=== PATIENT | female | born 1995 | race African-American/Black ===

== ENCOUNTER 2016-09-03 03:02 | Emergency (ER) | payer OTHER ==
[~2016-09-03] VITALS: Ht 167.6 cm; Wt 56.7 kg
[2016-09-03] MEDS ORDERED: BACT800T5 PO (04:23)
[2016-09-03] MEDS ORDERED: BACTRIM 160MG/800MG DS TAB PO ONE (04:30)
[2016-09-03] MEDS ORDERED: PHENAZOPYRIDINE 100 MG TAB PO ONE (04:30)
[2016-09-03 04:56] VITALS: BP 128/68
== END 2016-09-03 04:59 | disposition home or self-care (01) ==
LOC: EDBD 04:09 → M ED 04:09
DX: N39.0 Urinary tract infection, site not specified (principal)

== ENCOUNTER 2017-02-12 12:59 | Emergency (ER) | payer OTHER ==
[~2017-02-12 12:59] MED LIST: BACT800T5 PO
[2017-02-12] MEDS ORDERED: MORPHINE 2 MG/ML 1ML SYRINGE IV ONE (14:15)
[2017-02-12] MEDS ORDERED: ONDANSETRON 4MG/2ML VIAL (J2405) IV ONE (14:15)
[2017-02-12 14:17] LABS: BASO # 0.1 10^3/uL (0.0-0.2); BASO % 0.8 % (0.0-1.0); EOS # 0.2 10^3/uL (0.0-0.50); EOS % 2.8 % (0.0-3.0); IMMATURE GRANULOCYTE % 0.3 % (0-0); LYMPH # 1.9 10^3/uL (1.5-6.5); LYMPH % 28.7 % (24.0-44.0); MEAN CORPUSCULAR HEMOGLOBIN 28.8 pg (27.0-33.0); MEAN CORPUSCULAR HGB CONC 33.5 g/dl (32.0-36.5); MEAN CORPUSCULAR VOLUME 85.8 fl (80.0-96.0); MONO # 0.4 10^3/uL (0.0-0.8); MONO % 6.4 % (0.0-5.0); NEUTROPHILS # 3.9 10^3/uL (1.8-7.7); PLATELET COUNT, AUTOMATED 212 10^3/uL (150-450); WHITE BLOOD COUNT 6.5 10^3/uL (4.0-10.0)
[2017-02-12 14:31] LABS: CONTROL LINE HCG INT CTR LINE PRESENT
[2017-02-12 14:34] LABS: ANION GAP 6 MEQ/L (8-16); BLOOD UREA NITROGEN 7 MG/DL (7-18); CARBON DIOXIDE LEVEL 27 MEQ/L (21-32); CHLORIDE LEVEL 108 MEQ/L (98-107); CREATININE FOR GFR 0.84 MG/DL (0.55-1.02); GLOMERULAR FILTRATION RATE > 60.0 (>60); GLUCOSE, FASTING 88 MG/DL (70-105); POTASSIUM SERUM 3.6 MEQ/L (3.5-5.1); SODIUM LEVEL 141 MEQ/L (136-145)
[2017-02-12] MEDS ORDERED: ISOVUE-370 76% 100ML VIAL (Q9967) As Ordered ONE (15:23)
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
[2017-02-12] MEDS ORDERED: KETOROLAC 30 MG/ML VIAL (J1885) IV ONE (16:30)
[2017-02-12 16:55] VITALS: BP 109/59
== END 2017-02-12 17:06 | disposition home or self-care (01) ==
LOC: EDBD 12:59 → M ED 12:59
DX: Z04.1 Encounter for examination and observation following transport accident (principal); M54.9 Dorsalgia, unspecified; V49.49XA Driver injured in collision with other motor vehicles in traffic accident, initial encounter; Y92.410 Unspecified street and highway as the place of occurrence of the external cause; Y93.89 Activity, other specified; Y99.8 Other external cause status
CPT/HCPCS: 71260; 72125; 74177; 80048; 84703; 85025; 96374; 96375; 99284; J1885; J2405; Q9967

== ENCOUNTER 2019-10-21 22:15 | Inpatient (IN) | payer OTHER ==
[2019-10-21] MEDS ORDERED: CHARCOAL ACTIVATED LIQUID 25 GM/120 ML BTL As Ordered ONE (22:37)
[2019-10-21] MEDS ORDERED: CHARCOAL ACTIVATED LIQUID 25 GM/120 ML BTL ONE (22:37)
[2019-10-23] MEDS ORDERED: NICOTINE 14 MG/24 HR TRANSDERMAL As Ordered ONE (18:45)
[2019-11-29 08:48] LABS: INR 0.99; PROTHROMBIN TIME 13.3 SECONDS (11.8-14.0)
[2019-11-29 10:20] LABS: BASO % 0.5 % (0.0-1.0); EOS # 0.5 10^3/uL (0.0-0.5); EOS % 6.2 % (0.0-3.0); HEMOGLOBIN 13.4 g/dl (12.0-15.5); LYMPH # 2.8 10^3/uL (1.5-5.0); LYMPH % 33.3 % (24.0-44.0); MEAN CORPUSCULAR HEMOGLOBIN 30.1 pg (27.0-33.0); MEAN CORPUSCULAR HGB CONC 33.5 g/dl (32.0-36.5); MEAN CORPUSCULAR VOLUME 89.9 fl (80.0-96.0); MONO # 0.4 10^3/uL (0.0-0.8); MONO % 4.7 % (0.0-5.0); NEUTROPHILS # 4.6 10^3/uL (1.5-8.5); NEUTROPHILS % 54.9 % (36.0-66.0); PLATELET COUNT, AUTOMATED 249 10^3/uL (150-450); RED BLOOD COUNT 4.45 10^6/uL (4.00-5.40); WHITE BLOOD COUNT 8.3 10^3/uL (4.0-10.0)
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
[2020-01-03 10:39] LABS: ACETAMINOPHEN LEVEL < 2.0 UG/ML (10.0-30.0); ALBUMIN 3.5 GM/DL (3.2-5.2); ALT/SGPT 14 U/L (12-78); BILIRUBIN,DIRECT < 0.1 MG/DL (0.0-0.2); BILIRUBIN,TOTAL 0.3 MG/DL (0.2-1.0); BLOOD UREA NITROGEN 13 MG/DL (7-18); CARBON DIOXIDE LEVEL 26 MEQ/L (21-32); CHLORIDE LEVEL 107 MEQ/L (98-107); CREATININE FOR GFR 1.06 MG/DL (0.55-1.30); ETHYL ALCOHOL (ETHANOL) < 0.003 % (0.000-0.010); FREE T4 1.18 NG/DL (0.76-1.46); GLOMERULAR FILTRATION RATE > 60.0 (>60); GLUCOSE, FASTING 126 MG/DL (70-100); HCG, SERUM QUALITATIVE NEGATIVE (NEGATIVE); POTASSIUM SERUM 3.5 MEQ/L (3.5-5.1); SALICYLATE LEVEL < 1.7 MG/DL (5.0-30.0); SODIUM LEVEL 140 MEQ/L (136-145); THYROID STIMULATING HORMONE 0.701 uIU/ML (0.358-3.740)
[2020-01-13 09:10] LABS: ACETAMINOPHEN LEVEL < 2.0 UG/ML (10.0-30.0); SALICYLATE LEVEL < 1.7 MG/DL (5.0-30.0)
[2020-01-16 08:51] LABS: BLOOD UREA NITROGEN 9 MG/DL (7-18); CALCIUM LEVEL 8.7 MG/DL (8.5-10.1); CARBON DIOXIDE LEVEL 29 MEQ/L (21-32); CHLORIDE LEVEL 107 MEQ/L (98-107); CREATININE FOR GFR 1.09 MG/DL (0.55-1.30); GLOMERULAR FILTRATION RATE > 60.0 (>60); GLUCOSE, FASTING 83 MG/DL (70-100); POTASSIUM SERUM 3.8 MEQ/L (3.5-5.1); SODIUM LEVEL 139 MEQ/L (136-145)
[2020-01-20 12:18] LABS: HEMATOCRIT 39.3 % (36.0-47.0); HEMOGLOBIN 13.1 g/dl (12.0-15.5); MEAN CORPUSCULAR HEMOGLOBIN 30.3 pg (27.0-33.0); MEAN CORPUSCULAR HGB CONC 33.3 g/dl (32.0-36.5); PLATELET COUNT, AUTOMATED 247 10^3/uL (150-450); RED BLOOD COUNT 4.32 10^6/uL (4.00-5.40); WHITE BLOOD COUNT 7.5 10^3/uL (4.0-10.0)
== END 2019-10-23 18:30 | DRG 918 ==
LOC: M ED 22:15 → M PCU 10-22 10:00
PROVIDERS: ADMIT Internal Medicine; ATTEND Internal Medicine
DX: T43.292A Poisoning by other antidepressants, intentional self-harm, initial encounter (principal); F41.9 Anxiety disorder, unspecified; F32.9 Major depressive disorder, single episode, unspecified; F17.200 Nicotine dependence, unspecified, uncomplicated; J45.909 Unspecified asthma, uncomplicated; R73.9 Hyperglycemia, unspecified; R00.1 Bradycardia, unspecified; Z79.899 Other long term (current) drug therapy

== ENCOUNTER 2019-10-23 23:50 | Inpatient (IN) | payer OTHER ==
[2019-10-25] MEDS ORDERED: traZODone 50 MG TAB ONE (20:42)
[2019-10-25] MEDS ORDERED: traZODone 50 MG TAB As Ordered ONE (20:42)
[2019-10-26] MEDS ORDERED: ACETAMINOPHEN TAB 650MG DOSE (2X325MG) ONE ×2 (09:32→20:47)
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
--- NOTE | 2019-12-16 15:39 | MHIPN ---
DATE: 10/25/2019 I would like to clarify that the entire computer system and internet system for the hospital has been down now for a few days. The patient today tells me that her sleep was fair last night because she admits she has been doing a lot of thinking about her life. The patient continues to deny that she is suicidal, but all along I do feel she has been minimizing her symptoms because she did not even want to get admitted in the first place. She does admit that she still remains depressed. MENTAL STATUS EXAMINATION: She is alert and oriented times three. Affect is appropriate to mood, which is depressed. She is verbally spontaneous. Eye contact fair. There is no formal thought disorder noted. She denies suicidal ideations or homicidal ideations. She is not psychotic. Concentration is fair. Insight and judgment is fair. DIAGNOSES: Unspecified depressive disorder. Borderline personality disorder. TREATMENT PLAN: We will continue to monitor the patient for continued elevation and stabilization of her mood. We have continued her Wellbutrin and maybe we will see further response from this medication. We will monitor for continued resolution of suicidal ideations. BARTOLO
== END 2019-10-27 10:17 | disposition home or self-care (01) | DRG 882 ==
LOC: M PSY 23:50
PROVIDERS: ADMIT Psychiatry & Neurology Addiction Medicine; ATTEND Psychiatry & Neurology Addiction Medicine
DX: F43.24 Adjustment disorder with disturbance of conduct (principal); F33.1 Major depressive disorder, recurrent, moderate; R45.851 Suicidal ideations; F60.3 Borderline personality disorder; J45.909 Unspecified asthma, uncomplicated

== ENCOUNTER 2020-03-19 22:44 | Inpatient (IN) | payer OTHER ==
[~2020-03-19] VITALS: Ht 167.6 cm; Wt 49.1 kg
[2020-03-19] MEDS ORDERED: LEXA1TAB PO (23:01)
[2020-03-19] MEDS ORDERED: BUPR100T3 PO (23:01)
[2020-03-20 00:03] LABS: AMPHETAMINES LEVEL URINE NEGATIVE (NEGATIVE); BARBITURATES URINE NEGATIVE (NEGATIVE); BENZODIAZEPINES URINE NEGATIVE (NEGATIVE); CANNABINOIDS URINE NEGATIVE (NEGATIVE); COCAINE METABOLITE URINE NEGATIVE (NEGATIVE); METHADONE URINE NEGATIVE (NEGATIVE); OPIATES URINE NEGATIVE (NEGATIVE); PHENCYCLIDINE URINE NEGATIVE (NEGATIVE)
[2020-03-20 00:13] LABS: HEMATOCRIT 38.5 % (36.0-47.0); HEMOGLOBIN 12.4 g/dl (12.0-15.5); MEAN CORPUSCULAR HEMOGLOBIN 28.6 pg (27.0-33.0); MEAN CORPUSCULAR HGB CONC 32.2 g/dl (32.0-36.5); MEAN CORPUSCULAR VOLUME 88.7 fl (80.0-96.0); PLATELET COUNT, AUTOMATED 291 10^3/uL (150-450); RED BLOOD COUNT 4.34 10^6/uL (4.00-5.40); WHITE BLOOD COUNT 7.3 10^3/uL (4.0-10.0)
[2020-03-20 00:42] LABS: HCG, SERUM QUALITATIVE NEGATIVE (NEGATIVE)
[2020-03-20 01:02] LABS: ACETAMINOPHEN LEVEL < 2.0 UG/ML (10.0-30.0); ALBUMIN 4.1 GM/DL (3.2-5.2); ALT/SGPT 13 U/L (12-78); BILIRUBIN,DIRECT < 0.1 MG/DL (0.0-0.2); BILIRUBIN,TOTAL 0.1 MG/DL (0.2-1.0); BLOOD UREA NITROGEN 13 MG/DL (7-18); CALCIUM LEVEL 9.2 MG/DL (8.5-10.1); CARBON DIOXIDE LEVEL 26 MEQ/L (21-32); CHLORIDE LEVEL 107 MEQ/L (98-107); CREATININE FOR GFR 0.99 MG/DL (0.55-1.30); ETHYL ALCOHOL (ETHANOL) < 0.003 % (0.000-0.010); GLOMERULAR FILTRATION RATE > 60.0 (>60); GLUCOSE, FASTING 111 MG/DL (70-100); POTASSIUM SERUM 3.7 MEQ/L (3.5-5.1); SALICYLATE LEVEL < 1.7 MG/DL (5.0-30.0); SODIUM LEVEL 140 MEQ/L (136-145); TOTAL PROTEIN 7.8 GM/DL (6.4-8.2)
[2020-03-20] MEDS ORDERED: OLANZapine ORAL DISINTEGRATING TAB 5MG PO PRN (01:45)
[2020-03-20] MEDS ORDERED: MAALOX 30 ML SUSP *UDC PO PRN (01:45)
[2020-03-20] MEDS ORDERED: ACETAMINOPHEN TAB 650MG DOSE (2X325MG) PO PRN (01:45)
[2020-03-20] MEDS ORDERED: MOM 30ML SUSPENSION UDC PO PRN (01:45)
[2020-03-20] MEDS ORDERED: OXYC1TAB23 PO (02:09)
[2020-03-20] MEDS ORDERED: IBUP80TA PO ×2 (02:09)
[2020-03-20 02:12] LABS: RSV AMPLIFICATION NEGATIVE (NEGATIVE)
[2020-03-20 04:32] VITALS: BP 115/63
[2020-03-20] MEDS: ESCITALOPRAM OXALATE 5MG TABLET (LEXAPRO) PO SCH (09:00)
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
[2020-03-20 14:58] VITALS: BP 123/60
[2020-03-20] MEDS: traZODone 50 MG TAB PO PRN (20:25)
[2020-03-20 21:49] LABS: HEMOGLOBIN A1c 4.9 %
[2020-03-21 07:05] VITALS: BP 97/50
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
[2020-03-21] MEDS: ESCITALOPRAM OXALATE 5MG TABLET (LEXAPRO) PO SCH (09:13)
--- NOTE | 2020-03-21 10:25 | MHIPNPDOC ---
[facility] Progress Note Progress Note DATE OF SERVICE: 03/21/20 HISTORY: The patient is met with today, she reports that she is feeling much better on the Lexapro and describes that she is interesting going home, jeramie santamaria the informant generally makes her quite anxious. She has no other major complaints reports she is doing well. She is engaging and going to groups and doesn't have any major complaints. She generally has been doing well and without any behavioral problems from nursing side. VITAL SIGNS: See below. NEW TEST RESULTS: None. CURRENT MEDICATIONS: See below. MENTAL STATUS EXAMINATION: General: [Well dressed with good hygiene] Speech: [Spontaneous and fluid] Thought processes: [Linear and logical] Thought content: [Future orientated] Abstract reasoning, and computation: [Intact] Description of associations: [Intact] Description of abnormal or psychotic thoughts:[Denies any suicidal or homicidal ideation. Denies any auditory or visual hallucinations. Does not appear to be responding to internal stimuli. Does not appear to be endorsing any bizarre or paranoid ideation.] Judgment: [Fair] Insight: [Fair] Orientation: [Alert and orientated 3] Recent and remote memory: [Intact] Attention span and concentration: [Intact] Fund of knowledge: [Adequate] Mood: "Okay" Affect: [Euthymic with a full range] DIAGNOSES: 1. Other depressive disorder. ASSESSMENT: The patient is doing well on the low-dose Lexapro, will observe overnight and triage for discharge if she continues to do well MANAGEMENT PLAN: Continue Lexapro 5 mg nightly. TIME SPENT: minutes. Vital Signs Vital Signs Date Time Temp Pulse Resp B/P (MAP) Pulse Ox O2 Delivery O2 Flow Rate FiO2 03/21/20 07:05 98.0 68 16 97/50 (66) 99 Room Air Current Medications Current Medications Medications (Trade) Dose Ordered Sig/Kain Route PRN Reason Start Time Stop Time Status Last Admin Dose Admin Acetaminophen (Tylenol Tab) 650 mg Q6HP PRN PO HEADACHE or DISCOMFORT 03/20/20 01:45 Al Hydrox/Mg Hydrox/Simethicone (Mylanta) 30 ml Q4HP PRN PO HEARTBURN/INDIGESTION 03/20/20 01:45 Escitalopram Oxalate (Lexapro) 5 mg DAILY PO 03/20/20 09:00 03/21/20 09:13 Home Med (Med Rec Complete!) ASDIRECTED XX 03/20/20 02:15 03/20/20 02:21 DC Magnesium Hydroxide (Milk Of Magnesia) 30 ml DAILYPRN PRN PO CONSTIPATION 03/20/20 01:45 Olanzapine (ZyPREXA ZYDIS) 5 mg Q4HP PRN PO AGITATION/ANXIETY 03/20/20 01:45 Trazodone HCl (Desyrel) 50 mg QHSP PRN PO INSOMNIA 03/20/20 01:45 03/20/20 20:25 Allergies Coded Allergies: No Known Allergies (Unverified , 09/03/16) GENE BLACK DO Mar 21, 2020 10:25
[2020-03-21 18:11] VITALS: BP 132/91
[2020-03-21] MEDS: traZODone 50 MG TAB PO PRN (20:10)
[2020-03-22 06:23] VITALS: BP 106/51
[2020-03-22] MEDS: ESCITALOPRAM OXALATE 5MG TABLET (LEXAPRO) PO SCH (09:04)
--- NOTE | 2020-03-22 10:31 | MHDSPDOC ---
[facility] Discharge Summary Discharge Summary DATE OF ADMISSION: Mar 19, 2020 at 22:45 DATE OF DISCHARGE: Mar 22, 2020 at 12:10 DISCHARGE DIAGNOSES: Other depressive disorder CONSULTANTS INVOLVED: None (basic hospitalist screening) REASON FOR ADMISSION & TREATMENT AND PROGRESS ON THE UNIT : The patient was admitted to the inpatient mental health unit after having depression and suicidality, she was restarted primarily on Lexapro without the bupropion on 5 mg daily, she may progress improved well becoming more engaged in the unit talkative and less depressed. She did well over the time of observation denying any suicidality and being engaged with her treatment without any major complaints. She reports a minor headache and GI problems from the restart of the Lexapro but otherwise didn't have any major problems did well and requested discharge, after a extent. Of observation she continued to do well with only a minor constricted affect which appeared to still have appropriate reactivity. DISCHARGE ASSESSMENT:improved Legal status considerations: The patient at the time of discharge did not meet criteria for involuntary admission/extension due to having a normal mental status exam, fair insight into the situation, They are engaged in the discharge process, as well as being friendly and amenable in behavioral control and havent been engaging in any observed concerning behavior or ideation recently. They decline voluntary extension/admission at this time and must be discharged in good izzy, as Im unable to make a case for holding the patient against their will. They may have historical risk factors of admissions and other interactions with psychiatry however, those are not modifiable from a clinical perspective. The patient will need to be discharged in good izzy. MENTAL STATUS EXAMINATION ON DISCHARGE: General: Well dressed with good hygiene Speech: Spontaneous and fluid Thought processes: Linear and logical Thought content: Future orientated Abstract reasoning, and computation: Intact Description of associations: Intact Description of abnormal or psychotic thoughts:Denies any suicidal or homicidal ideation. Denies any auditory or visual hallucinations. Does not appear to be responding to internal stimuli. Does not appear to be endorsing any bizarre or paranoid ideation. Judgment: fair Insight: fair Orientation: Alert and orientated 3 Recent and remote memory: Intact Attention span and concentration: Intact Fund of knowledge: Adequate Mood: "okay" Affect: Minor constriction but overall full range PLAN/FOLLOWUP ARRANGEMENTS: Follow up appointments made (PCP and MH in 5 days of D/C date) and safety plan completed. Safety Planning aspects completed prior to discharge Medication supplies limited to 7 days with 4 refills to prevent accumulation to OD Chain of command coordinated with, weapons profile for 30 days RN reviewed crisis hotline information and other aspects to empower patient to access care in interim before next appointment. The amount of time spent in the coordination of care for this patient was approximately 30 minutes. Vital Signs/I&Os Vital Signs Date Time Temp Pulse Resp B/P (MAP) Pulse Ox O2 Delivery O2 Flow Rate FiO2 03/22/20 06:23 98.9 74 18 106/51 (69) 100 03/21/20 07:05 Room Air Medications Scheduled Escitalopram Oxalate (Lexapro) 5 Mg Tablet, 5 MG PO DAILY for mood for 7 Days, #7 Allergies Coded Allergies: No Known Allergies (Unverified , 09/03/16) GENE BLACK DO Mar 22, 2020 10:31
[2020-03-22] MEDS ORDERED: LEXA5TAB13 PO (10:33)
== END 2020-03-22 12:10 | disposition home or self-care (01) | DRG 881 ==
LOC: M ED 22:44 → M ED INP 22:45 → M PSY 03-20 03:44
PROVIDERS: ADMIT Psychiatry & Neurology Psychiatry; ATTEND Psychiatry & Neurology Addiction Medicine
DX: F32.9 Major depressive disorder, single episode, unspecified (principal); R45.851 Suicidal ideations; F17.200 Nicotine dependence, unspecified, uncomplicated